=== PATIENT | male | born 1950 | race Caucasian/White ===

== ENCOUNTER 2019-01-26 23:21 | Emergency (ER) | payer OTHER ==
[~2019-01-26] VITALS: Ht 185.4 cm; Wt 120.2 kg
[2019-01-27 00:10] LABS: ABSOLUTE NEUTROPHILS 5.9 thou/uL (1.4-8.2); BASOPHILS 0.8 % (0.0-2.0); EOSINOPHILS 2.1 % (0.0-3.0); HEMATOCRIT 44.3 % (42.0-52.0); HEMOGLOBIN 14.6 gm/dL (14.0-18.0); LYMPHOCYTES 16.5 % (24.0-44.0); MCH 30.2 pg (26.0-34.0); MCHC 32.9 g/dL (28.0-37.0); MCV 91.9 fL (80.0-100.0); MONOCYTES 10.6 % (1.0-8.0); PLATELET COUNT 212 thou/uL (150-400); RBC 4.82 mil/uL (4.50-6.00); RDW 14.5 % (10.5-14.5); WBC 8.5 thou/uL (4.0-11.0)
[2019-01-27 00:24] LABS: CALCIUM 9.2 mg/dL (8.5-10.1); CREATININE 1.1 mg/dL (0.7-1.3); POTASSIUM 3.9 mmol/L (3.5-5.1)
[2019-01-27 00:28] LABS: ALBUMIN 3.1 g/dL (3.4-5.0); DIRECT BILIRUBIN 0.1 mg/dL (<0.1-0.3); TOTAL BILIRUBIN 0.4 mg/dL (<0.1-1.0); TOTAL PROTEIN 7.2 g/dL (6.4-8.2)
[2019-01-27 00:45] LABS: URINE BILIRUBIN NEGATIVE (Negative); URINE BLOOD NEGATIVE (Negative); URINE CLARITY CLEAR; URINE COLOR YELLOW; URINE GLUCOSE-RANDOM* NEGATIVE (Negative); URINE KETONES NEGATIVE (Negative); URINE LEUKOCYTES-REFLEX NEGATIVE (Negative); URINE NITRITE-REFLEX NEGATIVE (Negative); URINE PROTEIN (DIPSTICK) NEGATIVE (Negative); URINE SPECIFIC GRAVITY 1.015 (1.005-1.035)
[2019-01-27] MEDS ORDERED: ZOFRAN ODT4 MG PO (02:48)
[2019-01-27] MEDS ORDERED: MECLIZINE HCL25 MG PO (02:48)
[2019-01-27] MEDS ORDERED: SEROQUEL 25 MG25 MG PO (02:48)
[2019-01-27 03:08] VITALS: BP 138/79
--- NOTE | 2019-01-27 08:48 | EKG ---
[address] [address] [place] [address] ELECTROCARDIOGRAM REPORT Name: JAYDA RESTREPO [id number] Admission: 01/26/19 Attend Phys: Discharge: 01/27/19 Date of : 50 Report #: [id number] THIS REPORT FOR: //name// [facility] ED Test Date: 2019-01-27 Test Time: 00:09:20 Pat Name: JAYDA RESTREPO Department: Room: Gender: Identity Management Developer: rogelio : 1950 Requested By: Sandy Rodriguez Order Number: [id number] MD: Karsten Jeong Measurements Intervals [place] Rate: 68 P: 15 VA: 176 QRS: -4 QRSD: 104 T: 7 QT: 407 QTc: 433 Interpretive Statements Sinus rhythm Poor R wave progression No previous ECG available for comparison Electronically Signed On 01-27-2019 8:48:05 CDT by Karsten Jeong [email or web address] <ELECTRONICALLY SIGNED> By: Karsten Jeong MD, [facility] 01/27/19 [id number] Karsten Jeong MD, FACC /EPI
== END 2019-01-27 03:08 | disposition home or self-care (01) ==
LOC: ER 23:21
PROVIDERS: Emergency Medicine
DX: G47.00 Insomnia, unspecified (principal); R53.1 Weakness; E78.00 Pure hypercholesterolemia, unspecified; I11.0 Hypertensive heart disease with heart failure; I50.9 Heart failure, unspecified; Z88.0 Allergy status to penicillin